=== PATIENT | female | born 1950 | race Caucasian/White ===

== ENCOUNTER 2018-11-07 13:43 | Emergency (ER) | payer MEDICARE, SELFPAY ==
--- NOTE | 2018-11-07 13:56 | DI.RAD.S_ITS ---
PROCEDURE: XR CHEST 1V INDICATIONS: chest pain TECHNIQUE: One view of the chest was acquired. COMPARISON: None. FINDINGS: Surgical changes and devices: Surgical clips are seen within the right axilla. Lungs and pleura: Lungs are clear. No pleural effusions or pneumothorax. Mediastinum: Mediastinal contours appear normal. Heart size is normal. Bones and chest wall: No suspicious bony lesions. Overlying soft tissues appear unremarkable. IMPRESSION: No acute cardiopulmonary process is evident. Dictated by: John Lloyd M.D. on 11/07/2018 at 13:25 Approved by: John Lloyd M.D. on 11/07/2018 at 13:26
[2018-11-07 14:00] VITALS: BP 101/47; PULSE 177; RESP 20; O2SAT 97
[2018-11-07] MEDS: SODIUM CHLORIDE 0.9% 1,000 ML 1000 ML IV (14:01)
[2018-11-07] MEDS: ADENOSINE 6 MG/2 ML VIAL IV (14:01)
[2018-11-07 14:04] VITALS: BP 102/75; PULSE 183; RESP 20; O2SAT 98; BMI 33.5
--- NOTE | 2018-11-07 14:07 | ED.ARRPALP ---
HPI - Arrhythmia/Palpitations General Chief Complaint: Arrhythmia/Palpitations Stated Complaint: heart palpitations Time Seen by Provider: 11/07/18 13:56 Source: patient Mode of arrival: ambulatory Limitations: no limitations History of Present Illness HPI narrative: Patient is a 68-year-old female who presents with heart palpitations. She states that she has had heart palpitations in the past able to resolve them on her own. However this 1 is not going away it started around 1:00 p.m. today. She feels a little dizzy and lightheaded. She denies any shortness of breath. Related Data Allergies Allergy/AdvReac Type Severity Reaction Status Date / Time No Known Drug Allergies Allergy Verified 11/07/18 14:06 Review of Systems Review of Systems ROS Unobtainable: All systems reviewed & are unremarkable except as noted in HPI and below Eyes Denies change in vision, Denies eye discharge, Denies irritation and Denies loss of vision ENT Ears, Nose, Mouth, and Throat: Denies change in voice, Denies neck pain and Denies sore throat Cardiovascular Reports as per HPI, Denies dyspnea and Denies dyspnea on exertion Respiratory Denies cough, Denies dyspnea, Denies dyspnea on exertion and Denies wheezing Gastrointestinal Gastrointestinal: Denies abdominal pain, Denies change in bowel habits, Denies diarrhea, Denies nausea and Denies vomiting Genitourinary Denies hematuria, Denies flank pain, Denies urinary incontinence and Denies urinary urgency Musculoskeletal Denies neck pain Integumentary/Breasts Denies pruritus, Denies erythema, Denies rash and Denies wounds Neurologic Denies loss of vision Allergic/Immunologic Denies wheezing [facility] Medical History Patient denies significant medical history (Acute) Social History Smoking Status: Never smoker Social History Smoking Status: Never smoker Exam Initial Vital Signs Initial Vital Signs: Vital Signs Pulse Rate 177 H 11/07/18 14:00 Respiratory Rate 20 11/07/18 14:00 Blood Pressure 101/47 L 11/07/18 14:00 Pulse Oximetry 97 11/07/18 14:00 GENERAL: Slightly diaphoretic awake alert oriented x3 HEENT: Head atraumatic,EOMI, pupils reactive, face symmetric, CARDIOVASCULAR: Tachycardic regular no murmurs RESPIRATORY: Breath sounds equal bilaterally, no wheezes rales or rhonchi. ABDOMEN: Soft, nontender. Normoactive bowel sounds all 4 quadrants. No guarding or rebound. : No CVA tenderness EXTREMITIES: Normal range of motion, no clubbing or edema. Neurovascularly intact NEUROLOGICAL: Alert and oriented x4.Normal gait and speech. Cranial nerves II through XII grossly intact. SKIN: Warm, dry, no laceration, no petechiae, no rashes or lesions. Course Orders Ordered: ED Orders 11/07/18 13:47 EKG-12 Lead Stat 11/07/18 13:56 XR chest 1V Stat 11/07/18 14:00 Complete Blood Count AUTO DIFF Stat Comprehensive Metabolic Panel Stat Magnesium Stat Thyroid Stimulating Hormone Stat Troponin & CK Cardiac Panel Stat 11/07/18 14:21 EKG-12 Lead Routine Discontinued Medications Adenosine (Adenocard) 12 mg IV NOW ONE Stop: 11/07/18 13:55 Last Admin: 11/07/18 15:14 Dose: Not Given Adenosine (Adenocard) 6 mg IV NOW ONE Stop: 11/07/18 13:57 Last Admin: 11/07/18 14:01 Dose: 6 mg Adenosine (Adenocard) 12 mg IV NOW ONE Stop: 11/07/18 14:01 Last Admin: 11/07/18 15:15 Dose: Not Given Sodium Chloride (Normal Saline 0.9%) 1,000 mls @ 1,000 mls/hr IV CONT CAROLINE Last Infusion: 11/07/18 14:58 Dose: 0 mls/hr Admin: 11/07/18 14:01 Dose: 1,000 mls/hr Vital Signs - 8 hr 11/07/18 14:00 11/07/18 14:04 11/07/18 14:15 Temperature Pulse Rate 177 H 183 H 92 H Respiratory Rate 20 20 16 Blood Pressure 102/75 Blood Pressure [Right Arm] 101/47 L 119/74 Pulse Oximetry 97 98 97 11/07/18 14:30 11/07/18 14:57 11/07/18 15:00 Temperature 97.7 F Pulse Rate 90 91 H Respiratory Rate 16 16 Blood Pressure Blood Pressure [Right Arm] 120/87 109/73 Pulse Oximetry 97 97 MDM - Arrhythmia/Palpitations Lab Data Attestation: I reviewed the patient's lab results. Result diagrams: 11/07/18 14:00 11/07/18 14:00 Lab Results 11/07/18 11/07/18 11/07/18 Range/Units 14:00 14:00 14:00 WBC 5.8 (4.5-11.0) X10^3/uL RBC 4.72 (4.0-5.2) X10^6/uL Hgb 15.5 (12.0-16.0) g/dL Hct 43.4 (36-46) % MCV 91.9 (80-100) fL MCH 32.8 (26-34) PG MCHC 35.7 (30-36) % RDW 13.6 (11.6-14.8) % Plt Count 192 (150-400) X10^3/uL Neut % (Auto) 68.6 (50-75) % Lymph % (Auto) 20.9 L (25-40) % Harris % (Auto) 8.0 (3-14) % Eos % (Auto) 1.8 L (2-4) % Baso % (Auto) 0.7 (0-2) % Neut # (Auto) 4000 (1077-2833) /uL Lymph # (Auto) 1200 (5516-1309) /uL Harris # (Auto) 500 (0-900) /uL Eos # (Auto) 100 (0-450) /uL Baso # (Auto) 0 (0-100) /uL Sodium 139 (137-145) mmol/L Potassium 3.8 (3.4-5.1) mmol/L Chloride 105 (98-107) mmol/L Carbon Dioxide 21 L (22-32) mmol/L BUN 14 (7-17) mg/dL Creatinine 0.90 (0.52-1.04) mg/dL Estimated GFR > 60.0 (>60) mL/min BUN/Creatinine Ratio 15.6 (6-22) Glucose 137 H (80-110) mg/dL Calcium 10.3 H (8.4-10.2) mg/dL Magnesium 1.9 (1.6-2.3) mg/dL Total Bilirubin 0.8 (0.2-1.3) mg/dL AST 43 H (14-36) IU/L ALT 56 H (9-52) IU/L Alkaline Phosphatase 103 (38-126) U/L Total Creatine Kinase 52 (30-135) U/L CK-MB (CK-2) TNP CK-MB (CK-2) Rel Index TNP Troponin I < 0.012 (0.01-0.034) ng/mL Total Protein 8.0 (6.3-8.2) g/dL Albumin 4.5 (3.5-5.0) g/dL Globulin 3.5 (1.7-4.1) g/dL Albumin/Globulin Ratio 1.3 (1.0-2.8) TSH 2.07 (0.47-4.68) uIU/mL Imaging Data Chest x-ray: Radiologist's impression: PROCEDURE: XR CHEST 1V INDICATIONS: chest pain TECHNIQUE: One view of the chest was acquired. COMPARISON: None. FINDINGS: Surgical changes and devices: Surgical clips are seen within the right axilla. Lungs and pleura: Lungs are clear. No pleural effusions or pneumothorax. Mediastinum: Mediastinal contours appear normal. Heart size is normal. Bones and chest wall: No suspicious bony lesions. Overlying soft tissues appear unremarkable. IMPRESSION: No acute cardiopulmonary process is evident. Dictated by: John Lloyd M.D. on 11/07/2018 at 13:25 Approved by: John Lloyd M.D. on 11/07/2018 at 13: ECG Data Attestation: I personally reviewed and interpreted this ECG as follows: Prior ECG tracings: not available for review Interpretation: EKG 1. SVT rate 180 no priors to compare EKG number2 normal sinus rhythm with T-wave inversion noted in V2 and V3 no ST elevations no prior to compare MDM Narrative Medical decision making narrative: Patient responded well to adenosine she has no chest pain no shortness of breath overall feels back to her normal self. She does have some T-wave inversions noted in V2 and V3. I have discussed with her if she has ever had an CT. She says no her chest heaviness has completely resolved. At this time heaviness is likely related to SVT. She has a manager web application actually made an appointment while in the emergency department for later this week. She is given copies of her EKGs and blood work strongly recommended possible outpatient stress test. Discharge Plan Departure Patient Disposition: Home Clinical Impression: Supraventricular tachycardia Discharge Date/Time: 11/07/18 15:40 Interventions: ED Discharge Assessment Last Done: 11/07/18 15:39 Instructions: DI for Paroxysmal Supraventricular Tachycardia Activity Restrictions/Additional Instructions: *You have been diagnosed with paroxysmal supraventricular tachycardia *What to do: You will likely need cardiology evaluation, you may need to be on medication. However not at this time. *Continue to take medications as directed *Follow up with your primary care provider in 2-3 days *Return to ER if you should have heart palpitations dizziness lightheadedness or any new, worsening or concerning symptoms
--- NOTE | 2018-11-07 14:07 | PC.NURSE ---
Modified Valsalva maneuver attempted with Dr. Evangelista to convert patient into NSR. Rhythm remains unchanged.
[2018-11-07 14:09] LABS: Add Manual Diff / Slide Review NO; Basophils Absolute Auto 0 /uL (0-100); Basophils Percent Auto 0.7 % (0-2); Eosinophils Absolute Auto 100 /uL (0-450); Eosinophils Percent Auto 1.8 % (2-4); Hematocrit 43.4 % (36-46); Hemoglobin 15.5 g/dL (12.0-16.0); Lymphocytes Absolute Auto 1200 /uL (1100-4500); Lymphocytes Percent Auto 20.9 % (25-40); Mean Corpuscular HGB Conc 35.7 % (30-36); Mean Corpuscular Hemoglobin 32.8 PG (26-34); Mean Corpuscular Volume 91.9 fL (80-100); Monocytes Absolute Auto 500 /uL (0-900); Neutrophils Absolute Auto 4000 /uL (1500-7000); Neutrophils Percent Auto 68.6 % (50-75); Platelet Count 192 X10^3/uL (150-400); Red Blood Cell Count 4.72 X10^6/uL (4.0-5.2); Red Cell Distribution Width 13.6 % (11.6-14.8); White Blood Cell Count 5.8 X10^3/uL (4.5-11.0)
[2018-11-07 14:15] VITALS: BP 119/74; PULSE 92; RESP 16; O2SAT 97
[2018-11-07 14:23] LABS: Alanine Aminotransferase 56 IU/L (9-52); Albumin 4.5 g/dL (3.5-5.0); Albumin Globulin Ratio 1.3 (1.0-2.8); Alkaline Phosphatase 103 U/L (38-126); Aspartate Aminotransferase 43 IU/L (14-36); BUN Creatinine Ratio 15.6 (6-22); Bilirubin Total 0.8 mg/dL (0.2-1.3); Blood Urea Nitrogen 14 mg/dL (7-17); Calcium 10.3 mg/dL (8.4-10.2); Carbon Dioxide 21 mmol/L (22-32); Chloride 105 mmol/L (98-107); Creatine Kinase 52 U/L (30-135); Estimated Glomerular Filt Rate > 60.0 mL/min (>60); Globulin 3.5 g/dL (1.7-4.1); Glucose 137 mg/dL (80-110); HEMOLYSIS < 15 (0-50); Magnesium 1.9 mg/dL (1.6-2.3); Potassium 3.8 mmol/L (3.4-5.1); Sodium 139 mmol/L (137-145)
[2018-11-07 14:30] VITALS: BP 120/87; PULSE 90; RESP 16; O2SAT 97
[2018-11-07 14:33] LABS: Troponin I < 0.012 ng/mL (0.01-0.034)
[2018-11-07 14:57] VITALS: TEMP 36.5
[2018-11-07 14:59] LABS: Thyroid Stimulating Hormone 2.07 uIU/mL (0.47-4.68)
[2018-11-07 15:00] VITALS: BP 109/73; PULSE 91; RESP 16; O2SAT 97
== END 2018-11-07 15:40 | disposition home or self-care (01) ==
PROVIDERS: Emergency Provider Emergency Medicine
DX: I47.1 Supraventricular tachycardia (principal)
CPT/HCPCS: 36591; 71045; 80053; 82550; 83735; 84443; 84484; 85025; 93005; 96361; 96374; 99284; 99285; J0153